=== PATIENT | male | born 1940 | race Caucasian/White ===

== ENCOUNTER 2017-08-10 17:31 | Emergency (ER) | payer MEDICARE ==
[2017-08-10 18:25] LABS: CHLORIDE,CL 99 mmol/L (98-107); SODIUM,NA 138 mmol/L (136-145)
[2017-08-10] MEDS: Sodium Chloride 0.9% 10 ML Syringe FLUSH PRN (18:40)
[2017-08-10] MEDS: Piperacillin/Tazobactam 3.375 GM in Sodium Chloride 0.9% 100 ML IV ONE (18:40)
[2017-08-10] MEDS: Sodium Chloride 0.9% 1,000 ML IV ONE (18:44)
--- NOTE | 2017-08-10 19:37 | EDM.PDOC ---
ED HPI GENERAL MEDICAL PROBLEM - General Chief Complaint: Possible Sepsis Stated Complaint: Unresponsive episode; sepsis secondary to left lower lobe pneumonia, CHEMO, +troponin Time Seen by Provider: 08/10/17 17:31 Source of Information: Reports: EMS History Limitations: Reports: No Limitations - History of Present Illness INITIAL COMMENTS - FREE TEXT/NARRATIVE: PtLeroy was found unresponsive outside of his apartment. EMS was summoned. Pt. was found to be hypotensive with a BP of <80 systolic. His O@ saturation was normal but he was tachypneic. IV access was established and he was given a bolus or NS. He became more alert and stated that he was leaving his apartment to "go downtown". He states that he has had a cough and chest congestion, but states that the cough is non-productive. He has been chilled. He states that he has had decreased strength on his R side chronically and states that he has great difficulty with ambulation. He states that he has a "growth near his rectum" and this causes him continence issues, and possibly is causing his issues with decreased strength in the R leg. He has a history of malignant neoplasm of the bladder. He has "no showed" or cancelled several urology appts., being seen last in August. He also cancelled a CT scan. Pt. has recently established care at [facility] so I do not have his [facility] medical records at this time. He has a history of bipolar disorder and was admitted to the crisis unit in [place] on 07/24/17 with suicidal ideation. He states that he was in that facility for approx. 1 week. He is followed by Dr. Alston for [facility] and Dr. Aparicio has seen him once in the clinic since leaving the [facility] system. Onset: Today Location: Reports: Generalized - Related Data Allergies Allergy/AdvReac Type Severity Reaction Status Date / Time Unable to Assess Allergy Unverified 08/10/17 17:35 ED ROS GENERAL - Review of Systems Review Of Systems: See Below Constitutional: Reports: Malaise, Weakness, Fatigue HEENT: Reports: No Symptoms Respiratory: Reports: Cough, Sputum Cardiovascular: Reports: No Symptoms Endocrine: Reports: No Symptoms GI/Abdominal: Reports: No Symptoms : Reports: Other (bladder malignancy) Musculoskeletal: Reports: No Symptoms, Other (see hpi) Skin: Reports: No Symptoms Neurological: Reports: Confusion, Numbness, Difficulty Walking, Gait Disturbance , Other (Chronic R upper and lower extremity weakness/paresthesia) Psychiatric: Reports: No Symptoms Hematologic/Lymphatic: Reports: No Symptoms Immunologic: Reports: No Symptoms ED EXAM, GENERAL - Physical Exam Exam: See Below Exam Limited By: No Limitations General Appearance: Alert, WD/WN, No Apparent Distress Eye Exam: Bilateral Eye: EOMI, Normal Fundi, Normal Inspection, PERRL Ears: Normal External Exam, Normal Canal, Hearing Grossly Normal, Normal TMs Nose: Normal Inspection, Normal Mucosa, No Blood Throat/Mouth: Normal Inspection, Normal Lips, Normal Teeth, Normal Gums, Normal Oropharynx, Normal Voice, No Airway Compromise Head: Other (abrasion/contusion to forehead/bridge of nose) Neck: Normal Inspection, Supple, Non-Tender, Full Range of Motion Respiratory/Chest: No Accessory Muscle Use, Chest Non-Tender, Decreased Breath Sounds (L side) Cardiovascular: Normal Peripheral Pulses, Regular Rate, Rhythm, No Edema, No Gallop, No JVD, No Murmur, No Rub Peripheral Pulses: 3+: Radial (L), Radial (R) GI/Abdominal: Normal Bowel Sounds, Soft, Non-Tender, No Organomegaly, No Distention, No Abnormal Bruit, No Mass (Male) Exam: Deferred Rectal (Males) Exam: Deferred Back Exam: Normal Inspection, Full Range of Motion, NT Extremities: Normal Inspection, Normal Range of Motion, Non-Tender, Normal Capillary Refill, No Pedal Edema Neurological: Alert, CN II-XII Intact, Normal Cognition, No Motor/Sensory Deficits, Confused, Disoriented, Slow to Respond, Sensory/Motor Deficit (R sided chronic) Psychiatric: Normal Affect, Normal Mood Skin Exam: Warm, Dry, Intact, Normal Color, No Rash Lymphatic: No Adenopathy Course - Orders/Labs/Meds Orders: Active Orders 24 hr Category Date Time Status EKG Documentation Completion [RC] STAT Care 08/10/17 18:18 Active Chest 1V Frontal [CR] Stat Exams 08/10/17 17:59 Taken Head wo Cont [CT] Stat Exams 08/10/17 17:36 Taken DRUG SCREEN, URINE [URCHEM] Stat Lab 08/10/17 17:38 Ordered Sodium Chloride 0.9% [Normal Saline] 1,000 ml Med 08/10/17 17:37 Active IV .BOLUS Sodium Chloride 0.9% [Saline Flush] Med 08/10/17 17:35 Active 10 ml FLUSH ASDIRECTED PRN Peripheral IV Insertion Adult [OM.PC] Routine Oth 08/10/17 17:37 Ordered Medication Orders Sodium Chloride (Normal Saline) 1,000 mls @ 250 mls/hr IV .BOLUS ONE Stop: 08/10/17 21:36 Last Admin: 08/10/17 18:44 Dose: 250 mls/hr Sodium Chloride (Saline Flush) 10 ml FLUSH ASDIRECTED PRN PRN Reason: Keep Vein Open Last Admin: 08/10/17 18:40 Dose: 10 ml Labs: Laboratory Tests 08/10/17 08/10/17 08/10/17 Range/Units 17:48 17:48 17:48 WBC 13.1 H (4.0-10.0) x10^3/uL RBC 3.74 L (4.5-6.0) x10^6/uL Hgb 9.7 L (14.0-18.0) g/dL Hct 30.4 L (40.0-52.0) % MCV 81.3 (78.0-93.0) fL MCH 25.9 L (26.0-32.0) pg MCHC 31.9 L (32.0-36.0) g/dL RDW Coeff of Agustina 15.2 H (10.0-15.0) % Plt Count 472 H (130-400) x10^3/uL Neut % (Auto) 90.1 H (50.0-80.0) % Lymph % (Auto) 4.3 L (25.0-50.0) % [place] % (Auto) 5.3 (2.0-11.0) % Eos % (Auto) 0.1 (0.0-4.0) % Baso % (Auto) 0.2 (0.2-1.2) % PT 11.9 H (9.8-11.8) SEC INR 1.1 L (2.0-3.5) Sodium 138 (136-145) mmol/L Potassium 4.2 (3.5-5.1) mmol/L Chloride 99 (98-107) mmol/L Carbon Dioxide 28 (21-32) mmol/L BUN 33 H (7-18) mg/dL Creatinine 1.8 H (0.70-1.30) mg/dL Est Cr Clr Drug Dosing TNP Estimated GFR (MDRD) 37 Glucose 157 H (74-106) mg/dL Lactic Acid (0.4-2.0) mmol/L Calcium 10.6 H (8.5-10.1) mg/dL Corrected Calcium 11.88 H (8.5-10.1) mg/dL Phosphorus 4.2 (2.6-4.7) mg/dL Magnesium 2.1 (1.8-2.4) mg/dL Total Bilirubin 0.6 (0.2-1.0) mg/dL AST 17 (15-37) U/L ALT 14 L (16-63) U/L Alkaline Phosphatase 102 (46-116) U/L POC Troponin I (0.00-0.08) ng/mL C-Reactive Protein 21.9 H (<=0.9) mg/dL NT-Pro-B Natriuret Pep (<=125) pg/mL Total Protein 7.9 (6.4-8.2) g/dL Albumin 2.4 L (3.4-5.0) g/dL Globulin 5.5 Albumin/Globulin Ratio 0.44 TSH, Ultra Sensitive 3.610 (0.358-3.74) uIU/mL POC Result Comm Ethyl Alcohol < 3 (0-3) mg/dL 08/10/17 08/10/17 08/10/17 Range/Units 17:48 17:48 17:53 WBC (4.0-10.0) x10^3/uL RBC (4.5-6.0) x10^6/uL Hgb (14.0-18.0) g/dL Hct (40.0-52.0) % MCV (78.0-93.0) fL MCH (26.0-32.0) pg MCHC (32.0-36.0) g/dL RDW Coeff of Agustina (10.0-15.0) % Plt Count (130-400) x10^3/uL Neut % (Auto) (50.0-80.0) % Lymph % (Auto) (25.0-50.0) % [place] % (Auto) (2.0-11.0) % Eos % (Auto) (0.0-4.0) % Baso % (Auto) (0.2-1.2) % PT (9.8-11.8) SEC INR (2.0-3.5) Sodium (136-145) mmol/L Potassium (3.5-5.1) mmol/L Chloride (98-107) mmol/L Carbon Dioxide (21-32) mmol/L BUN (7-18) mg/dL Creatinine (0.70-1.30) mg/dL Est Cr Clr Drug Dosing Estimated GFR (MDRD) Glucose (74-106) mg/dL Lactic Acid 3.9 H* (0.4-2.0) mmol/L Calcium (8.5-10.1) mg/dL Corrected Calcium (8.5-10.1) mg/dL Phosphorus (2.6-4.7) mg/dL Magnesium (1.8-2.4) mg/dL Total Bilirubin (0.2-1.0) mg/dL AST (15-37) U/L ALT (16-63) U/L Alkaline Phosphatase (46-116) U/L POC Troponin I 0.13 H* (0.00-0.08) ng/mL C-Reactive Protein (<=0.9) mg/dL NT-Pro-B Natriuret Pep 1835 H (<=125) pg/mL Total Protein (6.4-8.2) g/dL Albumin (3.4-5.0) g/dL Globulin Albumin/Globulin Ratio TSH, Ultra Sensitive (0.358-3.74) uIU/mL POC Result Comm Called critical res Ethyl Alcohol (0-3) mg/dL Meds: Medications Generic Name Dose Route Start Last Admin Trade Name Freq PRN Reason Stop Dose Admin Sodium Chloride 1,000 mls @ 250 mls/hr 08/10/17 17:37 08/10/17 18:44 Normal Saline IV 08/10/17 21:36 250 mls/hr .BOLUS ONE Administration Sodium Chloride 10 ml 08/10/17 17:35 08/10/17 18:40 Saline Flush FLUSH 10 ml ASDIRECTED PRN Administration Keep Vein Open Discontinued Medications Generic Name Dose Route Start Last Admin Trade Name Freq PRN Reason Stop Dose Admin Piperacillin Sod/Tazobactam 100 mls @ 200 mls/hr 08/10/17 18:33 08/10/17 18: 40 Sod 3.375 gm/ Sodium Chloride IV 08/10/17 19:02 200 mls/hr ONETIME ONE Administration Departure - Departure Time of Disposition: 19:48 Disposition: DC/Tfer to [facility] Clinical Impression: Acute kidney injury, Pneumonia, Sepsis - Discharge Information Referrals: Sachi Aparicio MD [Primary Care Provider] - Forms: Interfacility Transfer EMTALA, ED Department Discharge - My Orders Last 24 Hours: My Active Orders 08/10/17 17:35 Sodium Chloride 0.9% [Saline Flush] 10 ml FLUSH ASDIRECTED PRN 08/10/17 17:36 Head wo Cont [CT] Stat 08/10/17 17:37 Sodium Chloride 0.9% [Normal Saline] 1,000 ml IV .BOLUS Peripheral IV Insertion Adult [OM.PC] Routine 08/10/17 17:38 DRUG SCREEN, URINE [URCHEM] Stat 08/10/17 17:59 Chest 1V Frontal [CR] Stat 08/10/17 18:18 EKG Documentation Completion [RC] STAT - Assessment/Plan Last 24 Hours: My Active Orders 08/10/17 17:35 Sodium Chloride 0.9% [Saline Flush] 10 ml FLUSH ASDIRECTED PRN 08/10/17 17:36 Head wo Cont [CT] Stat 08/10/17 17:37 Sodium Chloride 0.9% [Normal Saline] 1,000 ml IV .BOLUS Peripheral IV Insertion Adult [OM.PC] Routine 08/10/17 17:38 DRUG SCREEN, URINE [URCHEM] Stat 08/10/17 17:59 Chest 1V Frontal [CR] Stat 08/10/17 18:18 EKG Documentation Completion [RC] STAT
== END 2017-08-10 20:00 | disposition short-term general hospital (02) ==
LOC: VM.ED 17:31
DX: A41.9 Sepsis, unspecified organism (principal); J18.9 Pneumonia, unspecified organism; N17.9 Acute kidney failure, unspecified
CPT/HCPCS: 36415; 70450; 71045; 80053; 83605; 83735; 83880; 84100; 84443; 84484; 85025; 85610; 86140; 96361; 96365; 99285; 99285-GF; G0480; J2543; J7030; J7050

== ENCOUNTER 2017-08-18 12:55 | Inpatient (IN) | payer MEDICARE, MEDICAID ==
[2017-08-18] MEDS ORDERED: Morphine Oral Concentrate 20 MG/ML 30 ML Bottle PO PRN (16:41)
[2017-08-18] MEDS ORDERED: Lidocaine 2% Viscous Solution 15 ML Cup PO PRN (16:41)
[2017-08-18] MEDS ORDERED: Menthol/Zinc Oxide Ointment 3.5 GM Tube TOP PRN (16:41)
[2017-08-18] MEDS ORDERED: Sodium Chloride 0.9% 10 ML Syringe FLUSH PRN (16:44)
[2017-08-18] MEDS ORDERED: Acetaminophen 325 MG Tab PO PRN (16:55)
[2017-08-18] MEDS ORDERED: Triamcinolone Acetonide 0.1% Crm 15 GM Tube TOP PRN (16:55)
[2017-08-18] MEDS ORDERED: Dextran 70/Hypromellose/PF Ophth Soln 0.9 ML UD EYEBOTH PRN (17:15)
[2017-08-18] MEDS: Morphine 2 MG/ML Syringe SUBCUT PRN ×5 (17:16→23:12)
[2017-08-18] MEDS: LORazepam 2 MG/ML SDV SUBCUT PRN ×2 (17:16→21:37)
[2017-08-18] MEDS: Atropine 1% Ophth Soln 5 ML BOTTLE SL PRN ×3 (17:51→22:22)
[2017-08-18] MEDS ORDERED: Albuterol 0.083% 2.5 MG/3 ML Neb Soln INH PRN (20:00)
--- NOTE | 2017-08-18 23:38 | HP ---
CHIEF COMPLAINT: Unresponsiveness. 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 He had a non ST elevation [place] along with acute diastolic heart failure, probable pneumonia, probable lung cancer, chronic kidney disease, stage III, severe malnutrition, known history of bladder cancer and bipolar along with acute encephalopathy. Due to deteriorating of his condition, the patient was transferred over to the palliative care unit. He did have some lab work this morning which showed his creatinine at 1.89. He was diuresed with some IV Lasix. He appears to be breathing comfortably now, however, is unresponsive. One of the nurses had seen him just yesterday. He was taking pills and he was able to recognize her on Thursday, but today, he is fixed, staring ahead, and not responding to any questions. On 08/13, his creatinine was 1. He has had very limited intake. He did receive a dose of 0.25 of IV Dilaudid at around noon prior to transfer. He had been taking some other oral medications including Lipitor and Bumex yesterday. Ativan appears to be ordered, but I cannot see a last dose given. He does have a catheter in. He is making some urine. He otherwise has no other family members who are available and decision to transfer back to [place] was for end of life comfort cares on swing bed. PAST MEDICAL HISTORY: Includes depression with bipolar disorder. He actually was sent out for psychiatric care earlier in July due to suicidal ideation. He has history of bladder cancer, essential hypertension. Last procedures on the bladder were in 2015. He had some followup last August, which was negative on surveillance, but did not follow up after that. SOCIAL HISTORY: The patient is single. He lives at [facility]. 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 He drinks 1 or 2 drinks per day based on his record, but it is reported that he has been a never smoker. PAST SURGICAL HISTORY: He had the bladder surgery with resections of bladder tumor and cystoscopy and stents back in 2016. FAMILY HISTORY: Not obtained, unable from patient and none in his record. ALLERGIES: Do include none known. MEDICATIONS: Medication list includes Tylenol, albuterol solution, Artificial Tears, aspirin 81 mg daily, Ativan 0.5 twice daily as needed for anxiety, lopressor 12.5 mg daily, oxycodone every 4 hours as needed for pain, MiraLAX, Lexapro 5 mg 3 times a day. REVIEW OF SYSTEMS: Unable to obtain due to patient's status and condition. He is unresponsive, nonverbal. PHYSICAL EXAMINATION: Vital signs: His blood pressure 87/54, pulse 106, temperature 97.9, respiratory rate 32, O2 of 85 on 4 L. General: He appears in no acute distress. Heart: Regularly irregular. Lungs: Sounds are decreased with poor effort bilaterally. No crackles. No wheezes. Abdomen: Nondistended, nontender. No bowel sounds present. Extremities: Warm and dry. No edema. They are cool, but not cold. He has no use of his arms during the exam. He is not able to follow instructions, actually his left arm is stiff and rigid. Skin: Pale. Eyes: Pupils, they are equal, round, and reactive to light. Neuro: Mental status unable to assess. ASSESSMENT: PALLIATIVE/END OF LIFE CARE 1. Unresponsive and impaired mobility due to bilateral middle cerebral artery stroke, now on comfort measures. 2. Lzd-SN-[id number] myocardial infarction type 1 because he is unable to take n.p.o. medications and he is on comfort measures. We will discontinue aspirin, Lipitor, and metoprolol. 3. Diastolic heart failure. We will continue to monitor. We will give him some subcutaneous Lasix or Bumex if needed for symptoms. 4. Probable pneumonia. He is not on any antibiotics. He is not having any fevers. He is not coughing. We will monitor clinically. 5. Chronic kidney disease, stage 3. We will switch him over to morphine, but if this is not effective, we will go back to Dilaudid. 6. Probable lung cancer and history of bladder cancer. We will treat pain with narcotics and focus on comfort measures. 7. Severe protein calorie malnutrition. He is able to eat anything he wishes if he is able. We will have a soft diet. 8. Bipolar disorder with depression. 9. Constipation probably due to poor oral intake. 10.Encephalopathy due to illness and medications. PLAN: At this point, the patient will have a subcu line placed. Currently, he does not appear to be in any pain, but we will have medications available for pain and anxiety as a p.r.n. Nothing scheduled unless needed. Updated the nurse Ramonita in attendance. We will also consult the social worker psychiatric. Catheter may stay in place for comfort. The patient is on palliative care treatments locally for end-of-life cares. MKA: 08/18/2017 17:04:15 MODL: 08/18/2017 23:29:52 /[id number] MTDD
[2017-08-19] MEDS: Atropine 1% Ophth Soln 5 ML BOTTLE SL PRN (06:53)
[2017-08-19] MEDS: LORazepam 2 MG/ML SDV SUBCUT PRN (06:54)
[2017-08-19] MEDS: Morphine 2 MG/ML Syringe SUBCUT PRN (07:44)
--- NOTE | 2017-08-19 09:09 | DISCH ---
SUMMARY PRIMARY DISCHARGE DIAGNOSES: 1. Bilateral middle cerebral artery strokes. 2. Palliative and end-of-life cares. 3. Lung nodules, possibly cancer. 4. History of bladder cancer with possible recurrence. 5. Diastolic heart failure, stable. 6. Probable pneumonia, off treatments. 7. Chronic kidney disease, stage III. 8. Severe protein-calorie malnutrition. 9. Bipolar disorder with depression. 10.Encephalopathy due to illness and medications. REASON FOR ADMISSION: On the date of admission, this 76-year-old male who had suffered an acute stroke on 08/10/2017, who was not found for many hours, was transferred to [facility] for acute cares. He was deteriorating from his condition and discussion was made to place him on palliative cares. He was on palliative cares and decision was made to transition him back to [place] with his decision makers. He was receiving Dilaudid at [facility] 0.25 mg IV prior to transfer. He was placed on p.r.n. morphine here. He was quite sedated when he came, but eventually he was uncomfortable and did receive the subcu morphine 1 mg around 11:00 p.m., his symptoms were not as well controlled. He had been receiving morphine every hour for the past 4 hours. Therefore, the dose was decreased to 2 mg. He did well. He slept then during the night and did not require any morphine until around 7:30 a.m., when he received another 2 mg. He had also received lorazepam subcutaneously, a total of 1.5 mg since admission and atropine solution for secretions. The patient peacefully around 8:21 a.m. in the morning with the nurse at the bedside. CATARINO: 08/19/2017 08:38:00 MODL: 08/19/2017 09:04:20 /[id number]
== END 2017-08-19 09:25 | disposition expired | DRG 64 ==
LOC: VM.MS 16:10
PROVIDERS: ADMIT Internal Medicine; ATTEND Internal Medicine
DX: I63.8 Other cerebral infarction (principal); I21.4 Non-ST elevation (NSTEMI) myocardial infarction; J18.9 Pneumonia, unspecified organism; E43 Unspecified severe protein-calorie malnutrition; G92 Toxic encephalopathy; C34.90 Malignant neoplasm of unspecified part of unspecified bronchus or lung; I13.0 Hypertensive heart and chronic kidney disease with heart failure and stage 1 through stage 4 chronic kidney disease, or unspecified chronic kidney disease; I50.32 Chronic diastolic (congestive) heart failure; Z51.5 Encounter for palliative care; Z66 Do not resuscitate; I65.23 Occlusion and stenosis of bilateral carotid arteries; N18.3 Chronic kidney disease, stage 3 (moderate); F31.9 Bipolar disorder, unspecified; F41.9 Anxiety disorder, unspecified; T50.905A Adverse effect of unspecified drugs, medicaments and biological substances, initial encounter; K59.00 Constipation, unspecified; C67.9 Malignant neoplasm of bladder, unspecified; Z79.899 Other long term (current) drug therapy; Z79.82 Long term (current) use of aspirin; Z96.0 Presence of urogenital implants
CPT/HCPCS: 94760; A9270-GY; J2060; J2270